=== PATIENT | female | born 1955 | race Caucasian/White ===

== ENCOUNTER 2023-05-20 10:01 | Inpatient (IN) | payer MEDICAID, OTHER ==
[~2023-05-20] VITALS: Ht 172.7 cm; Wt 86.8 kg
[2023-05-20] MEDS ORDERED: SODIUM CHLORIDE 0.9% 1,000 ML IV ONE ×3 (10:15→17:00)
[2023-05-20 10:56] LABS: Basophils # (auto) 0 10 ^3/uL (0-0.2); Eosinophils # (auto) 0 10 ^3/uL (0-0.8); Lymphocytes # (auto) 1.3 10 ^3/uL (0.4-5.4); Mean Corpuscular Hemoglobin 28.8 pg (28.0-32.0); Nucleated Red Blood Cells % 0.1 %
[2023-05-20 10:57] LABS: Basophils % (auto) 0.1 % (0.0-2.0); Hematocrit 23.8 % (36.0-46.0); Hemoglobin 7.8 g/dL (12.2-16.2); Mean Corpuscular Hgb Conc. 32.6 g/dL (32.0-36.0); Mean Corpuscular Volume 88.5 fL (80.0-100.0); Monocytes # (auto) 2.1 10 ^3/uL (0-1.3); Neutrophils # (auto) 17.5 10 ^3/uL (1.6-8.6); Neutrophils % (auto) 83.9 % (37.0-80.0); Red Blood Cells 2.69 10^6/uL (4.0-5.20); Red Cell Distribution Width 14.3 % (11.8-14.3); White Blood Cell 20.8 10^3/uL (4.4-10.8)
[2023-05-20 11:10] LABS: Partial Thromboplastin Time 63.8 SEC (24.5-34.5)
[2023-05-20 11:18] LABS: Potassium 4.1 mmol/L (3.5-5.1)
[2023-05-20 11:24] LABS: Albumin 3.8 g/dL (3.4-5.0); BUN/Creatinine Ratio 35.8 (10.0-20.0); Bilirubin, Total 0.6 mg/dL (0.2-1.0); Calcium 10.1 mg/dL (8.5-10.1); Total Protein 6.7 g/dL (6.4-8.2)
[2023-05-20 11:33] LABS: INR > 8.0 (0.9-1.15)
[2023-05-20] MEDS ORDERED: PHYTONADIONE(VitK) ORAL Susp 10mg/10ml(1mg/ml) PO ONE (11:45)
[2023-05-20 11:56] VITALS: PULSE 66; RESP 20; O2SAT 97
[2023-05-20 12:39] VITALS: PULSE 125; RESP 19; O2SAT 99
[2023-05-20] MEDS ORDERED: HYDROcodone-ACET 5/325MG TAB PO ONE (14:00)
[2023-05-20] MEDS ORDERED: FUROSEMIDE 40 MG/4 ML VIAL IV ONE (17:00)
[2023-05-20] MEDS ORDERED: cefTRIAXone 1GM/50ML D5W 50 ML IV ONE (17:00)
[2023-05-20] MEDS ORDERED: AZITHROMYCIN 500MG/ 250ML 250 ML IV ONE (17:00)
[2023-05-20] MEDS: SODIUM CHLORIDE 0.9% 1,000 ML IV SCH ×2 (17:45→18:48)
[2023-05-20] MEDS ORDERED: NITROGLYCERIN 0.4 MG SL TAB SL PRN (17:45)
[2023-05-20] MEDS ORDERED: ACETAMINOPHEN 325 MG TAB PO PRN (17:45)
[2023-05-20] MEDS ORDERED: MORPHINE SULFATE INJ 2 MG/ml SYRG IV PRN ×2 (17:45→20:15)
[2023-05-20] MEDS ORDERED: POLYPOW PO (18:01)
[2023-05-20] MEDS ORDERED: VERA180T61 PO (18:01)
[2023-05-20] MEDS ORDERED: TIZA6CAP15 PO (18:01)
[2023-05-20] MEDS ORDERED: ATOR20TA50 PO (18:01)
[2023-05-20] MEDS ORDERED: WARF4TAB69 PO (18:01)
[2023-05-20] MEDS ORDERED: DOCU-265 PO (18:01)
[2023-05-20] MEDS ORDERED: DOCUSATE SOD 100 MG CAP PO PRN (18:15)
[2023-05-20 18:24] LABS: Urine Bacteria NONE SEEN /hpf (None Seen); Urine Blood Negative /uL (Negative); Urine Clarity HAZY (Clear); Urine Color Yellow (Yellow); Urine Mucus FEW (None Seen); Urine Protein, UAD 1+ (Negative); Urine Urobilinogen Normal (Negative); Urine WBC 9 /hpf (0 - 5); Urine pH 5.5 (5.0-8.0)
[2023-05-20 18:28] LABS: Urine Specific Gravity > 1.050 (1.001-1.035)
[2023-05-20 19:30] VITALS: PULSE 130; RESP 20; O2SAT 96
[2023-05-20] MEDS: HYDROcodone-ACET 5/325MG TAB PO PRN (20:03)
[2023-05-20] MEDS ORDERED: VERAPAMIL HCL 180mg SR tab PO ONE (20:15)
[2023-05-20] MEDS: ASCORBIC ACID 500 MG TAB PO SCH (22:17)
[2023-05-21] VITALS (9 sets, daily range): BP systolic 117–138; BP diastolic 57–74; PULSE 78–115; RESP 16–22; TEMP 97.6–98.4; O2SAT 95–97
[2023-05-21] MEDS ORDERED: TEMAZEPAM 15 MG CAP PO ONE (00:45)
[2023-05-21 04:54] LABS: Eosinophils # (auto) 0 10 ^3/uL (0-0.8); Lymphocytes # (auto) 2.2 10 ^3/uL (0.4-5.4); Mean Corpuscular Volume 88.6 fL (80.0-100.0); Monocytes # (auto) 1.6 10 ^3/uL (0-1.3); Nucleated Red Blood Cells % 0.2 %; White Blood Cell 18.6 10^3/uL (4.4-10.8)
[2023-05-21 04:56] LABS: Basophils # (auto) 0.1 10 ^3/uL (0-0.2); Basophils % (auto) 0.4 % (0.0-2.0); Hematocrit 19.2 % (36.0-46.0); Mean Corpuscular Hemoglobin 29.5 pg (28.0-32.0); Mean Corpuscular Hgb Conc. 33.3 g/dL (32.0-36.0); Monocytes % (auto) 8.8 % (0.0-12.0); Neutrophils # (auto) 14.6 10 ^3/uL (1.6-8.6); Neutrophils % (auto) 78.8 % (37.0-80.0); Red Blood Cells 2.17 10^6/uL (4.0-5.20); Red Cell Distribution Width 14.3 % (11.8-14.3)
[2023-05-21 05:03] LABS: Hemoglobin 6.4 g/dL (12.2-16.2)
[2023-05-21 05:05] LABS: INR 2.64 (0.9-1.15)
[2023-05-21 05:10] LABS: Albumin 3.1 g/dL (3.4-5.0); BUN/Creatinine Ratio 54.7 (10.0-20.0); Calcium 9.1 mg/dL (8.5-10.1); Potassium 3.7 mmol/L (3.5-5.1)
[2023-05-21 05:12] LABS: Bilirubin, Total 0.4 mg/dL (0.2-1.0); Total Protein 6.3 g/dL (6.4-8.2)
[2023-05-21] MEDS: ZINC SULFATE 220mg CAP or TAB PO SCH ×2 (10:00→11:44)
[2023-05-21] MEDS: MULTIPLE VITAMIN TAB PO SCH ×2 (10:00→11:45)
[2023-05-21 11:20] LABS: Eosinophils # (auto) 0 10 ^3/uL (0-0.8); Hemoglobin 7.3 g/dL (12.2-16.2); Lymphocytes # (auto) 1.6 10 ^3/uL (0.4-5.4); Monocytes # (auto) 1.2 10 ^3/uL (0-1.3); Neutrophils % (auto) 81.9 % (37.0-80.0); White Blood Cell 16.1 10^3/uL (4.4-10.8)
[2023-05-21 11:22] LABS: Basophils # (auto) 0.1 10 ^3/uL (0-0.2); Basophils % (auto) 0.4 % (0.0-2.0); Hematocrit 22.9 % (36.0-46.0); Lymphocytes % (auto) 10.1 % (10.0-50.0); Mean Corpuscular Hemoglobin 28.1 pg (28.0-32.0); Mean Corpuscular Hgb Conc. 31.8 g/dL (32.0-36.0); Mean Corpuscular Volume 88.3 fL (80.0-100.0); Monocytes % (auto) 7.6 % (0.0-12.0); Neutrophils # (auto) 13.1 10 ^3/uL (1.6-8.6); Nucleated Red Blood Cells % 0.2 %; Red Blood Cells 2.59 10^6/uL (4.0-5.20); Red Cell Distribution Width 14.8 % (11.8-14.3)
[2023-05-21] MEDS: cefTRIAXone 1GM/50ML D5W 50 ML IV SCH (11:44)
[2023-05-21] MEDS: ASCORBIC ACID 500 MG TAB PO SCH ×2 (11:45→21:20)
[2023-05-21] MEDS: VERAPAMIL HCL 180mg SR tab PO SCH (11:46)
[2023-05-21] MEDS: AZITHROMYCIN 500MG/ 250ML 250 ML IV SCH (12:44)
[2023-05-21] MEDS: SODIUM CHLORIDE 0.9% 1,000 ML IV SCH (21:15)
[2023-05-21] MEDS: ATORVASTATIN 20 MG TAB PO SCH (21:20)
[2023-05-22] VITALS (7 sets, daily range): BP systolic 115–137; BP diastolic 70–84; PULSE 95–108; RESP 17–19; TEMP 98–98.9; O2SAT 95–97
[2023-05-22 06:08] LABS: Basophils # (auto) 0 10 ^3/uL (0-0.2); Basophils % (auto) 0.3 % (0.0-2.0); Eosinophils # (auto) 0.1 10 ^3/uL (0-0.8); Eosinophils % (auto) 0.4 % (0.0-7.0); Hematocrit 21.3 % (36.0-46.0); Hemoglobin 7.1 g/dL (12.2-16.2); Lymphocytes # (auto) 1.8 10 ^3/uL (0.4-5.4); Mean Corpuscular Volume 88.1 fL (80.0-100.0)
[2023-05-22 06:10] LABS: Mean Corpuscular Hemoglobin 29.3 pg (28.0-32.0); Mean Corpuscular Hgb Conc. 33.2 g/dL (32.0-36.0); Monocytes # (auto) 1.4 10 ^3/uL (0-1.3); Monocytes % (auto) 10.1 % (0.0-12.0); Neutrophils # (auto) 10.8 10 ^3/uL (1.6-8.6); Neutrophils % (auto) 76.2 % (37.0-80.0); Nucleated Red Blood Cells % 0.5 %; Red Blood Cells 2.41 10^6/uL (4.0-5.20); Red Cell Distribution Width 14.4 % (11.8-14.3); White Blood Cell 14.1 10^3/uL (4.4-10.8)
[2023-05-22 06:20] LABS: INR 1.17 (0.9-1.15); Potassium 3.6 mmol/L (3.5-5.1); Prothrombin Time 12.2 sec (9.3-11.8)
[2023-05-22 06:23] LABS: BUN/Creatinine Ratio 41.7 (10.0-20.0); Bilirubin, Total 0.7 mg/dL (0.2-1.0); Total Protein 5.5 g/dL (6.4-8.2)
[2023-05-22] MEDS: ZINC SULFATE 220mg CAP or TAB PO SCH (09:22)
[2023-05-22] MEDS: VERAPAMIL HCL 180mg SR tab PO SCH (09:22)
[2023-05-22] MEDS: ASCORBIC ACID 500 MG TAB PO SCH ×2 (09:22→21:27)
[2023-05-22] MEDS: MULTIPLE VITAMIN TAB PO SCH (09:22)
[2023-05-22] MEDS: cefTRIAXone 1GM/50ML D5W 50 ML IV SCH (09:22)
[2023-05-22] MEDS: SODIUM CHLORIDE 0.9% 1,000 ML IV SCH ×2 (09:23→23:41)
[2023-05-22] MEDS: HYDROcodone-ACET 5/325MG TAB PO PRN ×2 (09:56→23:41)
[2023-05-22] MEDS: AZITHROMYCIN 500MG/ 250ML 250 ML IV SCH (10:27)
[2023-05-22] MEDS: SUCRALFATE 1 GM/10 ML ORAL SUSP PO SCH (17:42)
[2023-05-22] MEDS: ATORVASTATIN 20 MG TAB PO SCH (21:26)
[2023-05-22] MEDS: PANTOPRAZOLE 40 MG/10 ML VIAL INJ IV SCH (21:33)
[2023-05-23] VITALS (8 sets, daily range): BP systolic 107–126; BP diastolic 56–74; PULSE 79–104; RESP 14–20; TEMP 97.8–98.6; O2SAT 95–99
[2023-05-23] MEDS: SUCRALFATE 1 GM/10 ML ORAL SUSP PO SCH ×2 (07:06→18:33)
[2023-05-23] MEDS: ZINC SULFATE 220mg CAP or TAB PO SCH (09:55)
[2023-05-23] MEDS: PANTOPRAZOLE 40 MG/10 ML VIAL INJ IV SCH ×2 (09:55→21:52)
[2023-05-23] MEDS: MULTIPLE VITAMIN TAB PO SCH (09:56)
[2023-05-23] MEDS: VERAPAMIL HCL 180mg SR tab PO SCH (09:56)
[2023-05-23] MEDS: ASCORBIC ACID 500 MG TAB PO SCH ×2 (09:56→21:52)
[2023-05-23 10:29] LABS: Basophils # (auto) 0 10 ^3/uL (0-0.2); Basophils % (auto) 0.3 % (0.0-2.0); Eosinophils # (auto) 0.1 10 ^3/uL (0-0.8); Hematocrit 21.7 % (36.0-46.0); Hemoglobin 7.1 g/dL (12.2-16.2); Monocytes # (auto) 1.2 10 ^3/uL (0-1.3); White Blood Cell 13.1 10^3/uL (4.4-10.8)
[2023-05-23 10:31] LABS: Eosinophils % (auto) 0.5 % (0.0-7.0); Lymphocytes % (auto) 7.6 % (10.0-50.0); Mean Corpuscular Hemoglobin 29.3 pg (28.0-32.0); Mean Corpuscular Hgb Conc. 32.7 g/dL (32.0-36.0); Mean Corpuscular Volume 89.5 fL (80.0-100.0); Neutrophils # (auto) 10.8 10 ^3/uL (1.6-8.6); Neutrophils % (auto) 82.6 % (37.0-80.0); Nucleated Red Blood Cells % 0.2 %; Red Blood Cells 2.43 10^6/uL (4.0-5.20); Red Cell Distribution Width 14.3 % (11.8-14.3)
[2023-05-23 10:54] LABS: BUN/Creatinine Ratio 26.6 (10.0-20.0); Calcium 8.5 mg/dL (8.5-10.1); Potassium 3.5 mmol/L (3.5-5.1)
[2023-05-23] MEDS: SODIUM CHLORIDE 0.9% 1,000 ML IV SCH ×3 (13:21→21:54)
[2023-05-23] MEDS: SODIUM FERR GLUC 62.5MG/5ML 125 MG in SODIUM CHL 0.9% 100 ML IV SCH (13:21)
[2023-05-23 14:49] LABS: Urine Bacteria FEW /hpf (None Seen); Urine Blood 1+ /uL (Negative); Urine Clarity HAZY (Clear); Urine Color Yellow (Yellow); Urine Mucus FEW (None Seen); Urine Protein, UAD 1+ (Negative); Urine Specific Gravity 1.028 (1.001-1.035); Urine Urobilinogen Normal (Negative); Urine WBC 15 /hpf (0 - 5); Urine pH 5.5 (5.0-8.0)
[2023-05-23] MEDS: HYDROcodone-ACET 5/325MG TAB PO PRN (20:23)
[2023-05-23] MEDS: ATORVASTATIN 20 MG TAB PO SCH (21:52)
[2023-05-24] VITALS (7 sets, daily range): BP systolic 108–154; BP diastolic 65–88; PULSE 67–110; RESP 14–20; TEMP 98.4–98.6; O2SAT 96–99
[2023-05-24 05:47] LABS: Basophils # (auto) 0.1 10 ^3/uL (0-0.2); Hemoglobin 7.3 g/dL (12.2-16.2)
[2023-05-24 05:50] LABS: Basophils % (auto) 0.5 % (0.0-2.0); Eosinophils # (auto) 0.3 10 ^3/uL (0-0.8); Eosinophils % (auto) 2.1 % (0.0-7.0); Hematocrit 22.7 % (36.0-46.0); Lymphocytes # (auto) 1.4 10 ^3/uL (0.4-5.4); Lymphocytes % (auto) 10.7 % (10.0-50.0); Mean Corpuscular Hemoglobin 29.5 pg (28.0-32.0); Mean Corpuscular Hgb Conc. 32.1 g/dL (32.0-36.0); Mean Corpuscular Volume 91.9 fL (80.0-100.0); Monocytes % (auto) 8.1 % (0.0-12.0); Neutrophils % (auto) 78.6 % (37.0-80.0); Nucleated Red Blood Cells % 0.2 %; Red Blood Cells 2.47 10^6/uL (4.0-5.20); Red Cell Distribution Width 14.6 % (11.8-14.3); White Blood Cell 12.7 10^3/uL (4.4-10.8)
[2023-05-24 06:04] LABS: Albumin 2.6 g/dL (3.4-5.0); BUN/Creatinine Ratio 27.3 (10.0-20.0); Calcium 8.8 mg/dL (8.5-10.1); Potassium 3.3 mmol/L (3.5-5.1)
[2023-05-24 06:07] LABS: Bilirubin, Total 1.1 mg/dL (0.2-1.0); Total Protein 5.7 g/dL (6.4-8.2)
[2023-05-24] MEDS: SUCRALFATE 1 GM/10 ML ORAL SUSP PO SCH ×2 (06:29→18:25)
[2023-05-24] MEDS ORDERED: POTASSIUM CHL 20MEQ/100ML 100 ML IV ONE (07:15)
[2023-05-24] MEDS: PANTOPRAZOLE 40 MG/10 ML VIAL INJ IV SCH ×2 (09:12→22:00)
[2023-05-24] MEDS: ASCORBIC ACID 500 MG TAB PO SCH ×2 (09:13→22:11)
[2023-05-24] MEDS: MULTIPLE VITAMIN TAB PO SCH (09:14)
[2023-05-24] MEDS: DOCUSATE SOD 100 MG CAP PO SCH (09:14)
[2023-05-24] MEDS: VERAPAMIL HCL 180mg SR tab PO SCH (09:15)
[2023-05-24] MEDS: cefTRIAXone 1GM/50ML D5W 50 ML IV SCH (09:15)
[2023-05-24] MEDS: ZINC SULFATE 220mg CAP or TAB PO SCH (09:15)
[2023-05-24] MEDS: SODIUM CHLORIDE 0.9% 1,000 ML IV SCH (09:20)
[2023-05-24] MEDS ORDERED: PANT40TA2 PO (09:33)
[2023-05-24] MEDS ORDERED: NITR-52 PO (09:33)
[2023-05-24] MEDS ORDERED: HYDR-4902 PO (09:34)
[2023-05-24] MEDS: HYDROcodone-ACET 5/325MG TAB PO PRN (10:46)
[2023-05-24] MEDS: SODIUM FERR GLUC 62.5MG/5ML 125 MG in SODIUM CHL 0.9% 100 ML IV SCH (12:00)
[2023-05-24] MEDS: ATORVASTATIN 20 MG TAB PO SCH (22:00)
[2023-05-25] VITALS (11 sets, daily range): BP systolic 110–143; BP diastolic 56–78; PULSE 84–107; RESP 16–18; TEMP 98.3–101.5; O2SAT 96–98
[2023-05-25] MEDS: SUCRALFATE 1 GM/10 ML ORAL SUSP PO SCH ×2 (06:31→17:00)
[2023-05-25 07:01] LABS: White Blood Cell 10.1 10^3/uL (4.4-10.8)
[2023-05-25 07:03] LABS: Hematocrit 21.4 % (36.0-46.0); Mean Corpuscular Hemoglobin 30.2 pg (28.0-32.0); Mean Corpuscular Hgb Conc. 32.8 g/dL (32.0-36.0); Red Blood Cells 2.32 10^6/uL (4.0-5.20); Red Cell Distribution Width 14.8 % (11.8-14.3)
[2023-05-25 07:04] LABS: Potassium 3.4 mmol/L (3.5-5.1)
[2023-05-25 07:13] LABS: BUN/Creatinine Ratio 21.6 (10.0-20.0)
[2023-05-25 07:55] LABS: Basophils % (manual) 0 (0.0-2.0); Blast Cells 0; Myelocytes % 0; Promyelocytes % 0; Reactive Lymphocytes 0
[2023-05-25] MEDS ORDERED: POTASSIUM EFFERVESENT TAB 25 MEQ PO ONE (08:00)
[2023-05-25] MEDS: cefTRIAXone 1GM/50ML D5W 50 ML IV SCH (11:02)
[2023-05-25] MEDS: ZINC SULFATE 220mg CAP or TAB PO SCH (11:03)
[2023-05-25] MEDS: DOCUSATE SOD 100 MG CAP PO SCH (11:03)
[2023-05-25] MEDS: PANTOPRAZOLE 40 MG/10 ML VIAL INJ IV SCH ×2 (11:03→21:34)
[2023-05-25] MEDS: VERAPAMIL HCL 180mg SR tab PO SCH (11:03)
[2023-05-25] MEDS: ASCORBIC ACID 500 MG TAB PO SCH ×2 (11:04→21:34)
[2023-05-25] MEDS: MULTIPLE VITAMIN TAB PO SCH (11:04)
[2023-05-25 12:35] LABS: Band Neutrophils % (manual) 1; Eosinophils % (manual) 1 (0-7); Lymphocytes % (manual) 7 (10.0-50.0); Metamyelocytes % 3; Monocytes % (manual) 8 (0-12); Platelet Estimate Adequate
[2023-05-25 13:59] LABS: Hematocrit 23.2 % (36.0-46.0)
[2023-05-25 14:01] LABS: Hemoglobin 7.5 g/dL (12.2-16.2)
[2023-05-25] MEDS: IRON SUCROSE COMPLEX 200 MG in SODIUM CHL 0.9% 100 ML IV SCH (14:27)
[2023-05-25] MEDS: ATORVASTATIN 20 MG TAB PO SCH (21:35)
[2023-05-26 05:00] VITALS: BP 139/89; PULSE 92; RESP 17; TEMP 97.5; O2SAT 94
[2023-05-26] MEDS: SUCRALFATE 1 GM/10 ML ORAL SUSP PO SCH ×2 (06:02→17:00)
[2023-05-26 06:16] LABS: Hematocrit 27.3 % (36.0-46.0); Mean Corpuscular Hemoglobin 30.3 pg (28.0-32.0); Mean Corpuscular Hgb Conc. 33.2 g/dL (32.0-36.0); Mean Corpuscular Volume 91.4 fL (80.0-100.0); Red Blood Cells 2.98 10^6/uL (4.0-5.20); Red Cell Distribution Width 14.9 % (11.8-14.3)
[2023-05-26 06:19] LABS: Band Neutrophils % (manual) 0; Basophils % (manual) 0 (0.0-2.0); Blast Cells 0; Metamyelocytes % 0; Myelocytes % 0; Promyelocytes % 0; Reactive Lymphocytes 0
[2023-05-26 06:23] LABS: Potassium 3.6 mmol/L (3.5-5.1)
[2023-05-26 06:30] LABS: BUN/Creatinine Ratio 20.4 (10.0-20.0); Calcium 9.4 mg/dL (8.5-10.1)
[2023-05-26 06:53] LABS: Eosinophils % (manual) 1 (0-7); Lymphocytes % (manual) 13 (10.0-50.0); Monocytes % (manual) 15 (0-12)
[2023-05-26 06:54] LABS: Platelet Estimate Adequate
[2023-05-26 08:00] VITALS: PULSE 97; O2SAT 97
[2023-05-26] MEDS: cefTRIAXone 1GM/50ML D5W 50 ML IV SCH (08:39)
[2023-05-26] MEDS: ASCORBIC ACID 500 MG TAB PO SCH (08:40)
[2023-05-26] MEDS: MULTIPLE VITAMIN TAB PO SCH (08:40)
[2023-05-26] MEDS: DOCUSATE SOD 100 MG CAP PO SCH (08:40)
[2023-05-26] MEDS: PANTOPRAZOLE 40 MG/10 ML VIAL INJ IV SCH (08:40)
[2023-05-26] MEDS: VERAPAMIL HCL 180mg SR tab PO SCH (08:42)
[2023-05-26] MEDS: ZINC SULFATE 220mg CAP or TAB PO SCH (08:43)
[2023-05-26 09:00] VITALS: BP 135/79; PULSE 93; RESP 17; TEMP 98.1; O2SAT 95
[2023-05-26] MEDS: IRON SUCROSE COMPLEX 200 MG in SODIUM CHL 0.9% 100 ML IV SCH (12:12)
[2023-05-26 13:00] VITALS: BP 115/71; PULSE 90; RESP 18; TEMP 98.4; O2SAT 94
[2023-05-26] MEDS: HYDROcodone-ACET 5/325MG TAB PO PRN (15:21)
[2023-05-26 15:48] VITALS: BP 115/71; PULSE 90; RESP 18; TEMP 98.4; O2SAT 94
[2023-05-27] MEDS ORDERED: PANTOPRAZOLE 40 MG TAB PO SCH (10:00)
== END 2023-05-26 18:16 | DRG 342 ==
LOC: EDBD 10:01 → ER 10:01 → TELE 17:41 → TELE-WESTW 05-21 16:04
PROVIDERS: ADMIT Internal Medicine Pulmonary Disease; ATTEND Internal Medicine
PROC: 30233N1 Transfusion of Nonautologous Red Blood Cells into Peripheral Vein, Percutaneous Approach (ICD-10-PCS; principal; 2023-05-21)
DX: S42.212A Unspecified displaced fracture of surgical neck of left humerus, initial encounter for closed fracture (principal); D68.9 Coagulation defect, unspecified; N17.9 Acute kidney failure, unspecified; I48.20 Chronic atrial fibrillation, unspecified; I95.9 Hypotension, unspecified; I69.354 Hemiplegia and hemiparesis following cerebral infarction affecting left non-dominant side; E86.9 Volume depletion, unspecified; N39.0 Urinary tract infection, site not specified; T45.515A Adverse effect of anticoagulants, initial encounter; D64.9 Anemia, unspecified; D72.829 Elevated white blood cell count, unspecified; E04.1 Nontoxic single thyroid nodule; W07.XXXA Fall from chair, initial encounter; I10 Essential (primary) hypertension; I48.0 Paroxysmal atrial fibrillation; R00.0 Tachycardia, unspecified; E78.5 Hyperlipidemia, unspecified; Y93.89 Activity, other specified; Z91.81 History of falling; Y92.009 Unspecified place in unspecified non-institutional (private) residence as the place of occurrence of the external cause; Y99.8 Other external cause status; Z80.8 Family history of malignant neoplasm of other organs or systems; Z80.0 Family history of malignant neoplasm of digestive organs
CPT/HCPCS: 36415; 70450; 70551; 71260; 72125; 73200; 73700; 74177; 80048; 80053; 81001; 82270; 83605; 83880; 83930; 84484; 85007; 85014; 85018; 85025; 85027; 85610; 85730; 86850; 86900; 86901; 86920; 87040; 87086; 93005; 93306; 93886; 96361; 96365; 96366; 96368; 97110; 97116; 97163; 99291; C9113; G0378; J0696; J1756